=== PATIENT | male | born 2000 | race Hispanic/Latino ===

== ENCOUNTER 2019-01-15 21:38 | Emergency (ER) | payer SELFPAY ==
[~2019-01-15] VITALS: Ht 180.3 cm; Wt 89.8 kg
--- NOTE | 2019-01-16 07:35 | EKG ---
[facility] [address] [place] [address] Signed Normal sinus rhythm Right atrial enlargement Possible Right ventricular hypertrophy Abnormal ECG No previous ECGs available Confirmed by RANCHO RIVERA MD ([id number]) on 01/16/2019 7:34:52 AM Electronically Signed By: RANCHO RIVERA MD 01/16/19 0735 PATIENT NAME: FIDEL SALASCRYSTAL VELABAN Electrocardiogram DATE OF : 89 PHYSICIAN: RANCHO RIVERA MD REPORT #: [id number] REPORT IS CONFIDENTIAL AND NOT TO BE RELEASED WITHOUT AUTHORIZATION
== END 2019-01-16 00:26 | disposition home or self-care (01) ==
LOC: ED 21:38
DX: R07.9 Chest pain, unspecified (principal)
CPT/HCPCS: 71045; 80053; 84484; 85025; 93005; 93010; 99285-25

== ENCOUNTER 2019-06-25 21:20 | Emergency (ER) | payer SELFPAY ==
[~2019-06-25] VITALS: Ht 180.3 cm; Wt 86.2 kg
--- OUTSIDE RECORDS SUMMARY | 2019-06-25 21:24 | XMS ---
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 E.D. VISIT COUNT (12 MO.) [address] TOTAL 4 NOTE: Visits indicate total known visits. ED/C VISIT TRACKING (12 MO.) 06/25/2019 21:22 [facility] TYPE: Emergency COMPLAINT: - HEAD COLD SYMPTOMS 06/14/2019 00:[address] [facility] TYPE: Emergency DIAGNOSES: - Other specified disorders of Eustachian tube, bilateral - Tinnitus, left ear - Labyrinthitis, bilateral - Otalgia 05/13/2019 06:[address] [facility] TYPE: Emergency DIAGNOSES: - Other specified disorders of Eustachian tube, unspecified ear - Otalgia, left ear - Otalgia - Otalgia, left ear 01/15/2019 21:[address] [facility] [place] TYPE: Emergency COMPLAINT: - CHEST PAIN DIAGNOSES: - Chest pain, unspecified INPATIENT VISIT TRACKING (12 MO.) No inpatient visits to display in this time frame [email or web address]
[2019-06-25] MEDS ORDERED: NORCO 5-325 TA1 EACH PO (22:38)
[2019-06-25] MEDS ORDERED: NAPROXEN500 MG PO (22:38)
== END 2019-06-25 22:55 | disposition home or self-care (01) ==
LOC: ED 21:20
DX: H92.02 Otalgia, left ear (principal)
CPT/HCPCS: 99282